=== PATIENT | female | born 1970 | race Two or more races ===

== ENCOUNTER 2017-05-09 21:58 | Emergency (ER) | payer BC, OTHER ==
[2017-05-09] MEDS ORDERED: OXYCODONE-ACETAMINOPHEN 5-325 MG TABLET PO ONE (23:55)
[2017-05-09] MEDS ORDERED: ONDANSETRON 4 MG TAB.RAPDIS PO ONE (23:55)
--- NOTE | 2017-05-09 23:56 | ER Document Report ---
ED Medical Screen (RME) - General Chief Complaint: Flank Pain Stated Complaint: FLANK PAIN Time Seen by Provider: 05/09/17 23:54 Notes: 46-year-old female, chief complaint of right-sided abdominal pain radiating to her flank, worse with food which causes nausea, she denies vomiting, fever. She denies dysuria. She denies any abdominal surgeries. She states pain is almost constant now, prompting her to come be evaluated. TRAVEL OUTSIDE OF THE [place] IN LAST 30 DAYS: No - Related Data Allergies/Adverse Reactions: No Known Allergies Allergy (Verified 02/08/15 15:54) Past Medical History Renal/ Medical History: Denies: Hx Peritoneal Dialysis Past Surgical History: Reports: Hx Section - x2, Hx Tonsillectomy, Hx Tubal Ligation - Immunizations Hx Diphtheria, Pertussis, Tetanus Vaccination: Yes Physical Exam - Vital signs Vitals: Temp Pulse Resp BP Pulse Ox 98.1 F 68 16 122/73 100 05/09/17 23:00 05/09/17 23:00 05/09/17 23:00 05/09/17 23:00 05/09/17 23:00 - Abdominal Tenderness: Tender - Patient is tender in the right upper quadrant with positive Goodwin sign, lower abdomen is completely benign - Back Back: No: Tender, CVA tenderness Course - Re-evaluation Re-evalutation: Patient telling me she thinks she has a UTI, however she has no CVA tenderness, no lower abdominal tenderness, no dysuria, and she has positive right upper quadrant pain with Goodwin sign. - Vital Signs Vital signs: Temp Pulse Resp BP Pulse Ox 98.1 F 68 16 122/73 100 05/09/17 23:00 05/09/17 23:00 05/09/17 23:00 05/09/17 23:00 05/09/17 23:00
[2017-05-10 00:14] LABS: ABSOLUTE BASOPHILS # (AUTO) 0.1 10^3/uL (0.0-0.2); ABSOLUTE EOSINOPHILS # (AUTO) 0.6 10^3/uL (0.0-0.6); ABSOLUTE LYMPHOCYTES (AUTO) 3.5 10^3/uL (0.5-4.7); ABSOLUTE MONOCYTES (AUTO) 0.6 10^3/uL (0.1-1.4); BASOPHILS % (AUTO) 0.9 % (0-2); EOSINOPHILS % (AUTO) 5.3 % (0-6); HEMATOCRIT 41.8 % (36.0-47.0); HEMOGLOBIN 14.4 g/dL (12.0-15.5); HGB HCT DIFFERENCE 1.4; LYMPHOCYTES % (AUTO) 29.6 % (13-45); MEAN CORPUSCULAR HEMOGLOBIN 32.6 pg (27.0-33.4); MEAN CORPUSCULAR HGB CONC 34.5 g/dL (32.0-36.0); MEAN CORPUSCULAR VOLUME 95 fl (80-97); MONOCYTES % (AUTO) 5.4 % (3-13); RED BLOOD COUNT 4.42 10^6/uL (3.72-5.28); RED CELL DISTRIBUTION WIDTH 13.9 % (11.5-14.0); SEGMENTED NEUTROPHILS % (AUTO) 58.8 % (42-78); WHITE BLOOD COUNT 11.9 10^3/uL (4.0-10.5)
[2017-05-10 00:31] LABS: ALANINE AMINOTRANSFERASE 30 U/L (9-52); ALBUMIN 4.1 g/dL (3.5-5.0); ALKALINE PHOSPHATASE 62 U/L (38-126); ANION GAP 9 (5-19); ASPARTATE AMINO TRANSFERASE 26 U/L (14-36); BILIRUBIN,DIRECT 0.3 mg/dL (0.0-0.4); BILIRUBIN,TOTAL 0.4 mg/dL (0.2-1.3); BLOOD UREA NITROGEN 27 mg/dL (7-20); CALCIUM 9.5 mg/dL (8.4-10.2); CARBON DIOXIDE 26 mmol/L (22-30); CHLORIDE 105 mmol/L (98-107); CREATININE RESULT 1.02 mg/dL (0.52-1.25); GLUCOSE 115 mg/dL (75-110); LIPASE 90.2 U/L (23-300); POTASSIUM 4.5 mmol/L (3.6-5.0); TOTAL PROTEIN 7.2 g/dL (6.3-8.2)
[2017-05-10 01:08] LABS: APPEARANCE,URINE CLEAR; BILIRUBIN,URINE NEGATIVE (NEGATIVE); GLUCOSE, URINE NEGATIVE (NEGATIVE); KETONES,URINE NEGATIVE (NEGATIVE); LEUKOCYTE ESTERASE,URINE NEGATIVE (NEGATIVE); NITRITE,URINE NEGATIVE (NEGATIVE); PROTEIN,URINE NEGATIVE (NEGATIVE); URINE SPECIFIC GRAVITY 1.015; UROBILINOGEN,URINE NEGATIVE mg/dL (<2.0)
--- NOTE | 2017-05-10 02:08 | RADIOLOGY REPORT (SQ) ---
EXAM DESCRIPTION: U/S ABDOMEN LIMITED W/O DOP COMPLETED DATE/TIME: 05/10/2017 1:50 am REASON FOR STUDY: ruq pain, nausea COMPARISON: None. TECHNIQUE: Dynamic and static grayscale images acquired of the abdomen and recorded on PACS. Additio nal selected color Doppler and spectral images recorded. LIMITATIONS: None. FINDINGS: PANCREAS: No masses. Visualized pancreatic duct normal caliber. LIVER: No masses. Echotexture normal. LIVER VASCULATURE: Normal directional flow of the main portal vein and hepatic veins. GALLBLADDER: Gallstone(s). No pericholecystic fluid. No wall thickening. ULTRASOUND-DETECTED SCHUMACHER'S SIGN: Negative. INTRAHEPATIC DUCTS AND COMMON DUCT: CBD and intrahepatic ducts normal caliber. No filling defects. INFERIOR VENA CAVA: Normal flow. AORTA: No aneurysm. RIGHT KIDNEY: Normal size. Normal echogenicity. No solid or suspicious masses. No hydronephrosis. No calcifications. Limited detail due to bowel gas artifact. PERITONEAL AND RIGHT PLEURAL SPACE: No ascites or effusions. OTHER: No other significant findings. IMPRESSION: No acute findings. Cholelithiasis. TECHNICAL DOCUMENTATION: JOB ID: [id number] [employer]- All Rights Reserved
--- NOTE | 2017-05-10 02:45 | RADIOLOGY REPORT (SQ) ---
EXAM DESCRIPTION: CT LTD RENAL STONE PROTOCOL ON COMPLETED DATE/TIME: 05/10/2017 2:20 am REASON FOR STUDY: right flank pain COMPARISON: 08/30/2010, 09/26/2010. TECHNIQUE: CT scan of the abdomen and pelvis performed without intravenous or oral contrast. Images reviewed with lung, soft tissue, and bone windows. Reconstructed coronal and sagittal MPR images revi ewed. All images stored on PACS. All CT scanners at this facility use dose modulation, iterative reconstruction, and/or weight based d osing when appropriate to reduce radiation dose to as low as reasonably achievable (ALARA). [facility]: Dose Right [facility]: CareDose [facility]: Dose Right [facility]: Teradose 4D [facility]: Smart [employer] RADIATION DOSE: Up-to-date CT equipment and radiation dose reduction techniques were employed. CTDIv ol: 9.1 mGy. DLP: 459 mGy-cm.mGy. LIMITATIONS: None. FINDINGS: LOWER CHEST: Likely benign 0.4 cm left lower lobar pulmonary nodule partially imaged NON-CONTRASTED LIVER, SPLEEN, ADRENALS: Evaluation limited by lack of IV contrast. No identified sign ificant masses. PANCREAS: No masses. No peripancreatic inflammatory changes. GALLBLADDER: No identified stones by CT criteria. No inflammatory changes to suggest cholecystitis. RIGHT KIDNEY AND URETER: No suspicious masses. Assessment limited by lack of IV contrast. No signif icant calcifications. No hydronephrosis or hydroureter. LEFT KIDNEY AND URETER: No suspicious masses. Assessment limited by lack of IV contrast. No signifi cant calcifications. No hydronephrosis or hydroureter. AORTA AND RETROPERITONEUM: No aneurysm. No retroperitoneal masses or adenopathy. BOWEL AND PERITONEAL CAVITY: No obvious masses or inflammatory changes. No free fluid. APPENDIX: Normal. PELVIS, BLADDER, AND ABDOMINAL WALL:No abnormal masses. No free fluid. Bladder normal. BONES: No significant findings. OTHER: No other significant finding. IMPRESSION: NO SIGNIFICANT OR ACUTE PROCESS IN THE ABDOMEN OR PELVIS. TECHNICAL DOCUMENTATION: JOB ID: [id number] Quality ID # [id number]: Final reports with documentation of one or more dose reduction techniques (e.g., Au tomated exposure control, adjustment of the mA and/or kV according to patient size, use of iterative reconstruction technique) 2010 [employer]- All Rights Reserved
--- NOTE | 2017-05-10 03:09 | ER Document Report ---
ED General - General Chief Complaint: Flank Pain Stated Complaint: FLANK PAIN Time Seen by Provider: 05/09/17 23:54 Notes: Patient is a 46-year-old female presents with complaint of some right-sided flank pain the right upper quadrant abdominal pain. She has also noticed that when she urinates there is some blood in her urine. She also notes some nausea whenever she eats. No fevers. No diarrhea. Pain is been intermittent for a few days. No other complaints at this time. TRAVEL OUTSIDE OF THE [place] IN LAST 30 DAYS: No - Related Data Allergies/Adverse Reactions: No Known Allergies Allergy (Verified 02/08/15 15:54) Past Medical History - Social History Smoking Status: Current Every Day Smoker Chew tobacco use (# tins/day): No Frequency of alcohol use: Occasional Drug Abuse: None Family History: Reviewed & Not Pertinent Patient has suicidal ideation: No Patient has homicidal ideation: No Renal/ Medical History: Denies: Hx Peritoneal Dialysis Past Surgical History: Reports: Hx Section - x2, Hx Tonsillectomy, Hx Tubal Ligation - Immunizations Hx Diphtheria, Pertussis, Tetanus Vaccination: Yes Review of Systems - Review of Systems Notes: My Normal Review Basic REVIEW OF SYSTEMS: CONSTITUTIONAL : Denies fever, chills, or sweats. Denies recent illness. CARDIOVASCULAR: Denies chest pain. RESPIRATORY: Denies cough, cold, or chest congestion. Denies shortness of breath, difficulty breathing, or wheezing. GASTROINTESTINAL: Right upper quadrant abdominal pain and right flank pain. Denies nausea, vomiting, or diarrhea. Denies constipation. Last BM: GENITOURINARY: Some blood in urination. FEMALE GENITOURINARY: Denies vaginal bleeding, abnormal or irregular periods. MUSCULOSKELETAL: Denies neck or back pain or joint pain or swelling. SKIN: Denies rash or skin lesions. NEUROLOGICAL: Denies altered mental status or loss of consciousness. Denies headache. Denies weakness or paralysis or loss of use of either side. Denies problems with gait or speech. Denies sensory or motor loss. ALL OTHER SYSTEMS REVIEWED AND NEGATIVE. Physical Exam - Vital signs Vitals: Temp Pulse Resp BP Pulse Ox 98.1 F 68 16 122/73 100 05/09/17 23:00 05/09/17 23:00 05/09/17 23:00 05/09/17 23:00 05/09/17 23:00 - Notes Notes: General Appearance: Well nourished, alert, cooperative, no acute distress, no obvious discomfort. Well-appearing. Vitals: reviewed, See vital signs table. Head: no swelling or tenderness to the head Eyes: PERRL, EOMI, Conjuctiva clear Mouth: No decreasd moisture Lungs: No wheezing, No rales, No rhonci, No accessory muscle use, good air exchange bilaterally. Heart: Normal rate, Regular rythm, No murmur, no rub Abdomen: Normal BS, soft, No rigidity, mild right upper quadrant abdominal tenderness palpation, No guarding, no rebound, no abdominal masses, no organomegaly Back: Mild pain to palpation at the right side patient's back near the thoracolumbar junction. Extremities: strength 5/5 in all extremities, good pulses in all extremities, no swelling or tenderness in the extremities, no edema. Skin: warm, dry, appropriate color, no rash Neuro: speech clear, oriented x 3, normal affect, responds appropriately to questions. Course - Re-evaluation Re-evalutation: 05/10/17 07:08 Patient did have some hematuria did have some flank pain therefore CT scan was performed to look for kidney stone. It was negative. Patient's ultrasound does show some gallstones. This may be the cause of her pain as she is having nausea after eating. I will refer her to surgery clinic. She has no evidence of cholecystitis. I encouraged her return to ER if she has worsening pain, fevers, or vomiting. Patient agrees with plan and will be discharged home. Dictation of this chart was performed using voice recognition software; therefore, there may be some unintended grammatical errors. - Vital Signs Vital signs: Temp Pulse Resp BP Pulse Ox 97.5 F 57 L 16 129/76 H 100 05/10/17 03:30 05/10/17 03:30 05/10/17 02:03 05/10/17 03:30 05/10/17 03:30 - Laboratory Result Diagrams: 05/10/17 00:05 05/10/17 00:05 Laboratory results interpreted by me: 05/09/17 05/10/17 05/10/17 23:34 00:05 00:05 WBC 11.9 H BUN 27 H Est GFR (Non-Af Amer) 58 L Glucose 115 H Urine Blood MODERATE H Discharge - Discharge Clinical Impression: Flank pain Cholelithiasis Qualifiers: Cholelithiasis location: gallbladder Cholecystitis presence: without cholecystitis Biliary obstruction: without biliary obstruction Qualified Code(s) : K80.20 - Calculus of gallbladder without cholecystitis without obstruction Condition: Good Disposition: HOME, SELF-CARE Additional Instructions: ABDOMINAL PAIN: There are many causes of abdominal pain. Pain can mean a serious problem requiring surgery (such as appendicitis). It can also be an innocent problem that goes away on its own (such as a viral infection). Often, time must pass to determine the cause of pain. The physician does not feel that hospitalization is necessary, at present. Things may change within the next 24 hours. Call the doctor or come back for re- examination if any problems occur, such as: (1) Pain that becomes more severe, steady, or becomes concentrated in one specific area. Also, pain that is more severe with movement or coughing. (2) Vomiting that persists or becomes more frequent. (3) Blood in the vomitus, urine, or bowel movements. Blood in the stool may have a tarry or black appearance. (4) Shaking chills or fever greater than 100 degrees F. (5) The abdomen becomes more distended or swollen. (6) Bowel movements cease. (7) Failure to improve as expected. GALLBLADDER DISEASE: Your evaluation shows evidence of gallbladder disease. The gallbladder is a pouch under the liver which stores bile. Stones, infection, or irritation of the gallbladder cause attacks of pain. Certain foods -- fats in particular -- may provoke attacks. The usual treatment for gallbladder disease is surgical removal of the gallbladder -- called a cholecystectomy. You will be referred to a physician qualified to advise you on the best treatment for your problem. Hospitalization is not necessary. Take clear liquids only until you are painfree. After that, you should stay on a low-fat diet, with frequent SMALL meals. Call the doctor or return at once if you develop severe pain, repeated vomiting, fever, or jaundice (a yellow color in the skin and whites of the eyes) . LOW-FAT DIET: The physician has recommended a low-fat diet. This diet is often used for gallbladder or pancreas problems. Your meals should be high-carbohydrate (potato, apples, noodles, breads, vegetables). Eat fish or skinless chicken (boiled or baked rather than fried) for protein. Beans and peas are good sources of fat-free protein. Soups are usually very low-fat. Don't eat anything fried. Avoid red meats. Avoid most dairy products. Skim milk and non-fat yogurt are OK. Most popular cheeses are very high-fat. Don't add butter or sauces -- use lemon or pepper instead. If you like salads, use one of the new "non-fat" dressings. "Fast Food" is "fat food." There is virtually nothing from a typical fast- food restaurant that you can eat. Fish patties and chicken nuggets are almost always deep-fat fried. "Special Sauces" are mostly fat. ANTINAUSEA MEDICATION: You have been given a medication to suppress nausea and vomiting. This type of medication can be given as a shot, pill, or suppository. It will usually last for many hours. Pills and shots usually last six to eight hours, suppositories last about 12 hours. For the typical illness, only one or two doses of the medication may be necessary. Mild lightheadedness may occur. This type of medicine can cause drowsiness. Do not drive or operate dangerous machinery while under its influence. Do not mix with alcohol. See your doctor at once if you have muscle spasms or tightness, or uncontrollable motions (particularly of the neck, mouth, or jaw). Persistent vomiting or severe lightheadedness should also be evaluated by the physician. FOLLOW-UP CARE: If you have been referred to a physician for follow-up care, call the physician s office for an appointment as you were instructed or within the next two days. If you experience worsening or a significant change in your symptoms, notify the physician immediately or return to the Emergency Department at any time for re-evaluation. Please call the surgery clinic, Dr. Morataya, for close follow-up to arrange a discussion as to whether or not your gallbladder should be electively removed. Your current ultrasound shows no evidence of infection or inflammation of the gallbladder; however, this can change. You should therefore return to the ER immediately if you have any fevers, recurrent vomiting, or worsening pain. Prescriptions: Omeprazole Magnesium [Prilosec Otc] 20 mg PO DAILY #30 tablet. Ondansetron [Zofran Odt 4 mg Tablet] 1 tab PO Q4H PRN #15 tab.rapdis PRN Reason: For Nausea/Vomiting Referrals: ASHLEY MORATAYA MD [ACTIVE STAFF] - 05/13/17
[2017-05-10 03:35] VITALS: BP 129/76
== END 2017-05-10 03:35 | disposition home or self-care (01) ==
LOC: ER 21:58
DX: K80.20 Calculus of gallbladder without cholecystitis without obstruction (principal); R10.9 Unspecified abdominal pain; R10.11 Right upper quadrant pain; R11.0 Nausea; F17.200 Nicotine dependence, unspecified, uncomplicated
CPT/HCPCS: 99284; 36415; 83690; 85025; 81025; 80053; 81001; 76705; 76380; S0119

== ENCOUNTER → 2017-07-08 | Outpatient (CLI) | payer BC ==
--- NOTE | 2017-07-08 09:09 | RADIOLOGY REPORT (SQ) ---
EXAM DESCRIPTION: CT ORBIT/SELLA WITHOUT COMPLETED DATE/TIME: 07/08/2017 7:04 am REASON FOR STUDY: CENTRAL PERFORATION OF TYMPANIC MEMBRANE, RIGHT EAR (H72.01) H72.01 CENTRAL PERFO RATION OF TYMPANIC MEMBRANE, RIGHT EAR COMPARISON: CT brain 02/17/2013 TECHNIQUE: Noncontrasted thin section axial images through the temporal bones and skull base were ob tained and reviewed at bone windows and bone algorithm with coronal and sagittal reconstructions. All CT scanners at this facility use dose modulation, iterative reconstruction, and/or weight based d osing when appropriate to reduce radiation dose to as low as reasonably achievable (ALARA). [facility]: Dose Right [facility]: CareDose [facility]: Dose Right [facility]: Teradose 4D [facility]: [employer] RADIATION DOSE: Up-to-date CT equipment and radiation dose reduction techniques were employed. CTDIv ol: 30.4 mGy. DLP: 327 mGy-cm. mGy. LIMITATIONS: None. FINDINGS: RIGHT SIDE: EXTERNAL AUDITORY CANAL: Widely patent. TYMPANIC MEMBRANE: No masses, thickening or medial retraction. Perforation is not identified. OSSICLES AND MIDDLE EAR CAVITY: Normal ossicles. No middle ear masses or fluid. INNER EAR STRUCTURES: Normal vestibule and cochlea. Normal aqueducts. INTERNAL AUDITORY CANAL: Normal bony canal without narrowing or widening. No calcified or ossified m asses. TEMPOROMANDIBULAR JOINT: Normal. MASTOID AIR CELLS: Clear. LEFT SIDE: EXTERNAL AUDITORY CANAL: Widely patent. TYMPANIC MEMBRANE: No masses, thickening or medial retraction. OSSICLES AND MIDDLE EAR CAVITY: Normal ossicles. No middle ear masses or fluid. INNER EAR STRUCTURES: Normal vestibule and cochlea. Normal aqueducts. INTERNAL AUDITORY CANAL: Normal bony canal without narrowing or widening. No calcified or ossified m asses. TEMPOROMANDIBULAR JOINT: Normal. MASTOID AIR CELLS: Clear. CENTRAL SKULL BASE: Normal foramina. No lytic or blastic lesions. INFERIOR BRAIN: Limited view. No acute findings. PARANASAL SINUSES : There is mucous membrane thickening occluding the left maxillary sinus outlet, be st shown on coronal reconstruction series 201, images 15-17. Circumferential left maxillary sinus mu cous membrane thickening is present without air-fluid level. Right maxillary sinus and maxillary sinus outlets are patent. Frontal sinuses are hypoplastic, an anatomic variant. Ethmoid air cells are clear. Fronto ethmoid j unctions are clear. Sphenoid sinuses are clear. Very mild leftward nasal septal deviation and nasal septal spurring. IMPRESSION: UNREMARKABLE NONCONTRASTED TEMPORAL BONE CT. MUCOUS MEMBRANE THICKENING ALONG THE LEFT MAXILLARY SINUS OUTLET TECHNICAL DOCUMENTATION: JOB ID: [id number] Quality ID # [id number]: Final reports with documentation of one or more dose reduction techniques (e.g., Au tomated exposure control, adjustment of the mA and/or kV according to patient size, use of iterative reconstruction technique) 2010 [employer]- All Rights Reserved
== END ==
LOC: RAD 06:52
PROVIDERS: ATTEND Otolaryngology
DX: H72.01 Central perforation of tympanic membrane, right ear (principal)
CPT/HCPCS: 70480

== ENCOUNTER → 2017-08-15 | Outpatient (CLI) | payer BC ==
[2017-08-15 10:13] LABS: ANION GAP 10 (5-19); BLOOD UREA NITROGEN 32 mg/dL (7-20); CALCIUM 9.8 mg/dL (8.4-10.2); CARBON DIOXIDE 24 mmol/L (22-30); CHLORIDE 108 mmol/L (98-107); CREATININE RESULT 1.19 mg/dL (0.52-1.25); GLUCOSE 83 mg/dL (75-110); POTASSIUM 4.4 mmol/L (3.6-5.0); SODIUM 141.7 mmol/L (137-145)
== END ==
LOC: LAB 08:41
PROVIDERS: ATTEND Family Medicine
DX: R79.89 Other specified abnormal findings of blood chemistry (principal)
CPT/HCPCS: 36415; 80048

== ENCOUNTER → 2018-06-02 | Outpatient (CLI) | payer OTHER ==
--- NOTE | 2018-06-02 16:49 | RADIOLOGY REPORT (SQ) ---
EXAM DESCRIPTION: FOREARM RIGHT COMPLETED DATE/TIME: 06/02/2018 4:40 pm REASON FOR STUDY: PAIN IN RIGHT WRIST, PAIN IN RIGHT ARM COMPARISON: None. NUMBER OF VIEWS: Two views. TECHNIQUE: Two radiographic images acquired of the right forearm, including elbow and wrist in at le ast one projection. LIMITATIONS: None. FINDINGS: MINERALIZATION: Normal. BONES: No acute fracture. No worrisome bone lesions. SOFT TISSUES: No obvious swelling or foreign body. OTHER: No other significant finding. IMPRESSION: NEGATIVE STUDY OF THE RIGHT FOREARM. NO RADIOGRAPHIC EVIDENCE OF ACUTE INJURY. TECHNICAL DOCUMENTATION: JOB ID: [id number] 2004 [employer]- All Rights Reserved Reading location - IP/workstation name: [email or web address]
--- NOTE | 2018-06-02 16:49 | RADIOLOGY REPORT (SQ) ---
EXAM DESCRIPTION: ELBOW RIGHT OVER 2 VIEWS COMPLETED DATE/TIME: 06/02/2018 4:40 pm REASON FOR STUDY: PAIN IN RIGHT WRIST, PAIN IN RIGHT ARM COMPARISON: None. NUMBER OF VIEWS: Four views. TECHNIQUE: AP, lateral, and both oblique radiographic images acquired of the right elbow. LIMITATIONS: None. FINDINGS: MINERALIZATION: Normal. BONES: No acute fracture or dislocation. No worrisome bone lesions. JOINT: No effusion. SOFT TISSUES: No soft tissue swelling. No foreign body. OTHER: No other significant finding. IMPRESSION: NEGATIVE STUDY OF THE RIGHT ELBOW. NO RADIOGRAPHIC EVIDENCE OF ACUTE INJURY. TECHNICAL DOCUMENTATION: JOB ID: [id number] [employer]- All Rights Reserved Reading location - IP/workstation name: [email or web address]
--- NOTE | 2018-06-02 17:09 | RADIOLOGY REPORT (SQ) ---
EXAM DESCRIPTION: HAND RIGHT 3 VIEWS COMPLETED DATE/TIME: 06/02/2018 4:40 pm REASON FOR STUDY: PAIN IN RIGHT WRIST, PAIN IN RIGHT ARM COMPARISON: None. EXAM PARAMETERS: NUMBER OF VIEWS: Three views. TECHNIQUE: AP, lateral and oblique radiographic images acquired of the right hand. LIMITATIONS: None. FINDINGS: MINERALIZATION: Normal. BONES: No acute fracture or dislocation. No worrisome bone lesions. JOINTS: No effusions. SOFT TISSUES: No soft tissue swelling. No foreign body. OTHER: No other significant finding. IMPRESSION: NEGATIVE STUDY OF THE RIGHT HAND. NO RADIOGRAPHIC EVIDENCE OF ACUTE INJURY. TECHNICAL DOCUMENTATION: JOB ID: [id number] [employer]- All Rights Reserved Reading location - IP/workstation name: [email or web address]
== END ==
LOC: RAD 16:22
PROVIDERS: ATTEND Family Medicine Geriatric Medicine
DX: M79.631 Pain in right forearm (principal); M25.531 Pain in right wrist

== ENCOUNTER → 2018-07-24 | Outpatient (CLI) | payer BC ==
--- NOTE | 2018-07-24 11:02 | RADIOLOGY REPORT (SQ) ---
EXAM DESCRIPTION: CT ABD/PELVIS NO ORAL OR IV COMPLETED DATE/TIME: 07/24/2018 8:24 am REASON FOR STUDY: FLANK PAIN (R10.9) R10.9 UNSPECIFIED ABDOMINAL PAIN COMPARISON: CT abdomen pelvis 08/30/2010, 09/26/2010, 05/10/2017 TECHNIQUE: CT scan of the abdomen and pelvis performed without intravenous or oral contrast. Images reviewed with lung, soft tissue, and bone windows. Reconstructed coronal and sagittal MPR images revi ewed. All images stored on PACS. All CT scanners at this facility use dose modulation, iterative reconstruction, and/or weight based d osing when appropriate to reduce radiation dose to as low as reasonably achievable (ALARA). [facility]: Dose Right [facility]: CareDose [facility]: Dose Right [facility]: Teradose 4D [facility]: [employer] RADIATION DOSE: CT Rad equipment meets quality standard of care and radiation dose reduction techniq ues were employed. CTDIvol: 4.9 mGy. DLP: 255 mGy-cm.mGy. LIMITATIONS: No oral or IV contrast FINDINGS: LOWER CHEST: No significant findings. No nodules or infiltrates. NON-CONTRASTED LIVER, SPLEEN, ADRENALS: Evaluation limited by lack of IV contrast. No identified sign ificant masses. PANCREAS: No masses. No peripancreatic inflammatory changes. GALLBLADDER: Surgically absent RIGHT KIDNEY AND URETER: No suspicious masses. Assessment limited by lack of IV contrast. No signif icant calcifications. No hydronephrosis or hydroureter. LEFT KIDNEY AND URETER: No suspicious masses. Assessment limited by lack of IV contrast. No signifi cant calcifications. No hydronephrosis or hydroureter. AORTA AND RETROPERITONEUM: No aneurysm. No retroperitoneal masses or adenopathy. BOWEL AND PERITONEAL CAVITY: No obvious masses or inflammatory changes. No free fluid. APPENDIX: Normal. PELVIS, BLADDER, AND ABDOMINAL WALL:No abnormal masses. No free fluid. Bladder normal. BONES: No significant findings. OTHER: No other significant finding. IMPRESSION: Post cholecystectomy. Otherwise unremarkable uncontrasted CT of the abdomen and pelvis COMMENT: Quality ID # 436: Final reports with documentation of one or more dose reduction techniques (e.g., Automated exposure control, adjustment of the mA and/or kV according to patient size, use of iterative reconstruction technique) TECHNICAL DOCUMENTATION: JOB ID: [id number] [employer]- All Rights Reserved Reading location - IP/workstation name: [email or web address]
== END ==
LOC: RAD 07:30
PROVIDERS: ATTEND Physician Assistant Medical
DX: R31.9 Hematuria, unspecified (principal)
CPT/HCPCS: 74176

== ENCOUNTER 2018-12-19 16:31 | Emergency (ER) | payer BC ==
[2018-12-19] MEDS ORDERED: ONDANSETRON HCL INJ/PF 4 MG/2 ML SDV IV ONE (18:37)
[2018-12-19] MEDS ORDERED: MORPHINE SULFATE 10 MG/ML INJ IV ONE (18:37)
[2018-12-19] MEDS ORDERED: RINGERS SOLUTION,LACTATED 1,000 ML IV ONE (18:37)
[2018-12-19 18:59] LABS: ABSOLUTE EOSINOPHILS # (AUTO) 0.2 10^3/uL (0.0-0.6); ABSOLUTE LYMPHOCYTES (AUTO) 0.6 10^3/uL (0.5-4.7); ABSOLUTE MONOCYTES (AUTO) 0.7 10^3/uL (0.1-1.4); ABSOLUTE NEUT (AUTO) 7.3 10^3/uL (1.7-8.2); BASOPHILS % (AUTO) 0.6 % (0-2); EOSINOPHILS % (AUTO) 2.3 % (0-6); HEMATOCRIT 44.1 % (36.0-47.0); HEMOGLOBIN 14.8 g/dL (12.0-15.5); LYMPHOCYTES % (AUTO) 6.8 % (13-45); MEAN CORPUSCULAR HEMOGLOBIN 31.7 pg (27.0-33.4); MEAN CORPUSCULAR HGB CONC 33.5 g/dL (32.0-36.0); MEAN CORPUSCULAR VOLUME 95 fl (80-97); MONOCYTES % (AUTO) 7.6 % (3-13); PLATELET COUNT 258 10^3/uL (150-450); RED BLOOD COUNT 4.67 10^6/uL (3.72-5.28); RED CELL DISTRIBUTION WIDTH 14.1 % (11.5-14.0); SEGMENTED NEUTROPHILS % (AUTO) 82.7 % (42-78); TOTAL CELLS COUNTED % (AUTO) 100 %; WHITE BLOOD COUNT 8.9 10^3/uL (4.0-10.5)
[2018-12-19 19:13] LABS: APPEARANCE,URINE SLIGHTLY-CLOUDY; BILIRUBIN,URINE NEGATIVE (NEGATIVE); GLUCOSE, URINE NEGATIVE (NEGATIVE); KETONES,URINE NEGATIVE (NEGATIVE); LEUKOCYTE ESTERASE,URINE NEGATIVE (NEGATIVE); NITRITE,URINE NEGATIVE (NEGATIVE); PROTEIN,URINE NEGATIVE (NEGATIVE); URINE SPECIFIC GRAVITY 1.027
[2018-12-19 19:14] LABS: COLOR,URINE YELLOW
[2018-12-19 19:17] LABS: ALANINE AMINOTRANSFERASE 17 U/L (9-52); ALBUMIN 4.5 g/dL (3.5-5.0); ALKALINE PHOSPHATASE 79 U/L (38-126); ANION GAP 12 (5-19); ASPARTATE AMINO TRANSFERASE 31 U/L (14-36); BILIRUBIN,DIRECT 0.3 mg/dL (0.0-0.4); BILIRUBIN,TOTAL 0.3 mg/dL (0.2-1.3); BLOOD UREA NITROGEN 19 mg/dL (7-20); CALCIUM 9.7 mg/dL (8.4-10.2); CARBON DIOXIDE 21 mmol/L (22-30); CHLORIDE 107 mmol/L (98-107); GLUCOSE 95 mg/dL (75-110); LIPASE 43.9 U/L (23-300); POTASSIUM 3.9 mmol/L (3.6-5.0); SODIUM 140.2 mmol/L (137-145); TOTAL PROTEIN 7.3 g/dL (6.3-8.2)
--- NOTE | 2018-12-19 20:19 | ER Document Report ---
ED General - General Chief Complaint: Abdominal Pain Stated Complaint: ABDOMINAL PAIN Time Seen by Provider: 12/19/18 18:11 Primary Care Provider: CRYSTAL HERNANDEZ MD [Primary Care Provider] - Follow up in 3-5 days BALDEMAR PARIKH MD [ACTIVE STAFF] - Follow up in 3-5 days Notes: Patient is a 48 year old female that presents to the emergency department for chief complaint of right sided abdominal pain, vomiting and diarrhea. Patient reports that over the past 24-36 hours she has been having vomiting and diarrhea, and overall has not been feeling well. She also admits to having pain in the right upper quadrant of her abdomen. She describes the pain as a 5/10, aching in nature and it does come and go. She is status post cholecystectomy, reports that she has been having this pain on and off for several months now. Denies history of pancreatitis in the past. Past Medical History: denies chronic medical conditions Past Surgical History: cholecystectomy Social History: denies tobacco, etoh, or drug use. Family History: Reviewed and noncontributory for presenting illness Allergies: Reviewed, see documented allergy list. REVIEW OF SYSTEMS: Other than noted above, the 12 point review of systems was reviewed with the patient and were negative, all pertinent findings are included in the HPI. PHYSICAL EXAMINATION: Vital signs reviewed, nursing noted reviewed. GENERAL: Appears uncomfortable on exam, but not acute distress. HEAD: Atraumatic, normocephalic. EYES: Eyes appear normal, extraocular movements intact, sclera anicteric, conjunctiva are normal. ENT: nares patent, oropharynx clear without exudates. Moist mucous membranes. NECK: Normal range of motion, supple without lymphadenopathy LUNGS: Breath sounds clear to auscultation bilaterally and equal. No wheezes rales or rhonchi. HEART: Regular rate and rhythm without murmurs ABDOMEN: Soft, mild RUQ tenderness with palpation on exam, no flank tenderness, normoactive bowel sounds. No rebound, guarding, or rigidity. No masses a ppreciated. EXTREMITIES: Nontender, good range of motion, no pitting or edema. NEUROLOGICAL: No focal neurological deficits. Moves all extremities spontaneously Motor and sensory grossly intact on exam. PSYCH: Normal mood, normal affect. SKIN: Warm, Dry, normal turgor, no rashes or lesions noted on exposed skin TRAVEL OUTSIDE OF THE [place] IN LAST 30 DAYS: No - Related Data Allergies/Adverse Reactions: No Known Allergies Allergy (Verified 02/08/15 15:54) Past Medical History - Social History Smoking Status: Never Smoker Family History: Reviewed & Not Pertinent Renal/ Medical History: Denies: Hx Peritoneal Dialysis Past Surgical History: Reports: Hx Section - x2, Hx Tonsillectomy, Hx Tubal Ligation - Immunizations Hx Diphtheria, Pertussis, Tetanus Vaccination: Yes Physical Exam - Vital signs Vitals: Temp Pulse Resp BP Pulse Ox 98.5 F 96 14 118/70 100 12/19/18 17:08 12/19/18 17:08 12/19/18 17:08 12/19/18 17:08 12/19/18 17:08 Course - Re-evaluation Re-evalutation: Patient seen and examined vital signs reviewed. Laboratory data and imaging were ordered as appropriate for the patient's presenting symptoms and complaint, with consideration of any critical or life threatening conditions that may be associated with their obtained history and exam as noted above. Patient was treated with IV fluids, IV morphine and Zofran Results were reviewed when available and demonstrated unremarkable blood work, and negative CT imaging of the abdomen and pelvis, UA was positive for hematuria, discussed these results with the patient, do not have a clear etiology of the patient's symptoms she did have fluid in her colon concerning for diarrheal illness, which she has been having vomiting and diarrhea which may explain some of her cramping advised follow-up with her primary care and gastroenterology. The patient was re-evaluated and was stable and improved Evaluation was most consistent with nonspecific abdominal pain, vomiting and diarrhea, given Zofran to go home with and follow-up. Results were discussed with the patient at this point, after careful consideration I feel that that patient can be discharged from the emergency department, the patient was educated treatments and reasons to return to the emergency department based on their presumed diagnosis as noted above, they were advised to followup with a primary care physician in 2-3 days. Patient was agreeable to plan of care. *Note is created using voice recognition software and may contain spelling, syntax or grammatical errors. Laboratory 12/19/18 12/19/18 12/19/18 18:40 18:40 18:40 WBC 8.9 RBC 4.67 Hgb 14.8 Hct 44.1 MCV 95 MCH 31.7 MCHC 33.5 RDW 14.1 H Plt Count 258 Seg Neutrophils % 82.7 H Lymphocytes % 6.8 L Monocytes % 7.6 Eosinophils % 2.3 Basophils % 0.6 Absolute Neutrophils 7.3 Absolute Lymphocytes 0.6 Absolute Monocytes 0.7 Absolute Eosinophils 0.2 Absolute Basophils 0.0 Sodium 140.2 Potassium 3.9 Chloride 107 Carbon Dioxide 21 L Anion Gap 12 BUN 19 Creatinine 0.95 Est GFR ( Amer) > 60 Est GFR (Non-Af Amer) > 60 Glucose 95 Calcium 9.7 Total Bilirubin 0.3 Direct Bilirubin 0.3 Neonat Total Bilirubin Not Reportable Neonat Direct Bilirubin Not Reportable Neonat Indirect Bili Not Reportable AST 31 ALT 17 Alkaline Phosphatase 79 Total Protein 7.3 Albumin 4.5 Lipase 43.9 Urine Color YELLOW Urine Appearance SLIGHTLY-CLOUDY Urine pH 5.0 Ur Specific Baird 1.027 Urine Protein NEGATIVE Urine Glucose (UA) NEGATIVE Urine Ketones NEGATIVE Urine Blood LARGE H Urine Nitrite NEGATIVE Urine Bilirubin NEGATIVE Urine Urobilinogen 2.0 H Ur Leukocyte Esterase NEGATIVE Urine WBC (Auto) 2 Urine RBC (Auto) 31 Squamous Epi Cells Auto 5 Urine Mucus (Auto) MANY Urine Ascorbic Acid NEGATIVE Abdomen/Pelvis CT 12/19/18 20:01 IMPRESSION: 1. Fluid-filled colon suggesting a diarrheal illness. 2. No urinary stones or hydronephrosis. 12/20/18 21:26 - Vital Signs Vital signs: Temp Pulse Resp BP Pulse Ox 98.8 F 80 14 102/61 99 12/19/18 21:58 12/19/18 21:58 12/19/18 17:08 12/19/18 21:58 12/19/18 21:58 - Laboratory Result Diagrams: 12/19/18 18:40 12/19/18 18:40 Laboratory results interpreted by me: 12/19/18 12/19/18 12/19/18 18:40 18:40 18:40 RDW 14.1 H Seg Neutrophils % 82.7 H Lymphocytes % 6.8 L Carbon Dioxide 21 L Urine Blood LARGE H Urine Urobilinogen 2.0 H Discharge - Discharge Clinical Impression: Abdominal pain Qualifiers: Abdominal location: right upper quadrant Qualified Code(s): R10.11 - Right up per quadrant pain Hematuria Qualifiers: Hematuria type: unspecified type Qualified Code(s): R31.9 - Hematuria, unspecified Nausea and vomiting Qualifiers: Vomiting type: unspecified Vomiting Intractability: non-intractable Qualified Code(s): R11.2 - Nausea with vomiting, unspecified Diarrhea Qualifiers: Diarrhea type: unspecified type Qualified Code(s): R19.7 - Diarrhea, unspecified Condition: Stable Disposition: HOME, SELF-CARE Instructions: Abdominal Pain ([facility]) Additional Instructions: Please follow-up with gastroenterology, call for an appointment. Forms: Return to Work Referrals: BALDEMAR PARIKH MD [ACTIVE STAFF] - Follow up in 3-5 days CRYSTAL HERNANDEZ MD [Primary Care Provider] - Follow up in 3-5 days
--- NOTE | 2018-12-19 21:13 | RADIOLOGY REPORT (SQ) ---
CT ABDOMEN PELVIS WITHOUT IV CONTRAST EXAM DATE: 12/19/2018 20:01 HISTORY: Right-sided abdominal pain and hematuria COMPARISON: 07/24/2018 TECHNIQUE: CT scan of the abdomen and pelvis without IV contrast. This exam was performed according to our departmental dose-optimization program, which includes automated exposure control, adjustment of the mA and/or kV according to patient size and/or use of iterative reconstruction technique. FINDINGS: The lung bases are clear. No pleural or pericardial effusions. There is no hiatal hernia. There has been a prior cholecystectomy. The liver, spleen, pancreas, adrenal glands, and kidneys are unremarkable. No hydronephrosis is seen. Pelvic organs are unremarkable. The colon is fluid-filled, suggesting a diarrheal illness. No small bowel obstruction. The appendix is normal. No intraperitoneal free fluid or free air is seen. The aorta is normal caliber. No acute osseous findings are appreciated. There is no body wall hernia. IMPRESSION: 1. Fluid-filled colon suggesting a diarrheal illness. 2. No urinary stones or hydronephrosis.
[2018-12-19] MEDS ORDERED: ONDANSETRON ODT 4 MG TAB (6 TAB/ER DISP) PO PRN (21:45)
[2018-12-19 22:04] VITALS: BP 102/61
== END 2018-12-19 22:03 | disposition home or self-care (01) ==
LOC: ER 16:31
DX: R31.9 Hematuria, unspecified (principal); R11.2 Nausea with vomiting, unspecified; R10.11 Right upper quadrant pain; R19.7 Diarrhea, unspecified; R10.9 Unspecified abdominal pain; Z90.49 Acquired absence of other specified parts of digestive tract
CPT/HCPCS: 99284; 96361; 96374; 96375; 36415; 83690; 85025; 80053; 81001; 74176; J2270; J2405; J7120

== ENCOUNTER 2018-12-21 07:06 | Emergency (ER) | payer BC ==
[2018-12-21] MEDS ORDERED: ONDANSETRON HCL INJ/PF 4 MG/2 ML SDV IV ONE (09:34)
--- NOTE | 2018-12-21 09:39 | ER Document Report ---
ED General - General Chief Complaint: Nausea/Vomiting/Diarrhea Stated Complaint: VOMITING Time Seen by Provider: 12/21/18 08:38 Primary Care Provider: CRYSTAL HERNANDEZ MD [Primary Care Provider] - Follow up as needed Notes: Very pleasant 48-year-old female presents to the emergency department for persistent vomiting and diarrhea that started last . She was seen here on Saturday for similar symptoms and diagnosed with a diarrheal illness. She did get a CT abdomen pelvis which did not show any concerns for nephrolithiasis or any concerning GI pathology. She states that her symptoms have not improved and she has persistent nausea, vomiting, diarrhea. She tried to eat some chicken noodle soup and some crackers last night started having severe abdominal pain that is cramping in nature and clear liquid diarrhea. She does complain of chills but denies fever, complains of body aches, denies any blood hematochezia or hemoptysis. Denies shortness of breath or chest pain. Eyes any urinary symptoms. TRAVEL OUTSIDE OF THE [place] IN LAST 30 DAYS: No - Related Data Allergies/Adverse Reactions: No Known Allergies Allergy (Verified 12/21/18 07:14) Past Medical History - Social History Smoking Status: Unknown if Ever Smoked Family History: Reviewed & Not Pertinent Patient has suicidal ideation: No Patient has homicidal ideation: No Renal/ Medical History: Denies: Hx Peritoneal Dialysis Past Surgical History: Reports: Hx Section - x2, Hx Tonsillectomy, Hx Tubal Ligation - Immunizations Hx Diphtheria, Pertussis, Tetanus Vaccination: Yes Review of Systems - Review of Systems Constitutional: See HPI EENT: See HPI Cardiovascular: See HPI Respiratory: See HPI Gastrointestinal: See HPI Genitourinary: See HPI Female Genitourinary: No symptoms reported Musculoskeletal: No symptoms reported Skin: No symptoms reported Hematologic/Lymphatic: No symptoms reported Neurological/Psychological: No symptoms reported Physical Exam - Vital signs Vitals: Temp Pulse Resp BP Pulse Ox 97.8 F 81 16 117/77 100 12/21/18 07:13 12/21/18 07:13 12/21/18 07:13 12/21/18 07:13 12/21/18 07:13 - Notes Notes: PHYSICAL EXAMINATION: Reviewed vital signs and charting by RN GENERAL: Alert, interacts well. No acute distress. HEAD: Normocephalic, atraumatic. EYES: Pupils equal, round, and reactive to light. Extraocular movements intact. ENT: Oral mucosa moist, tongue midline, erythema of the oropharynx, no tonsillar hypertrophy NECK: Full range of motion. Supple. Trachea midline. LUNGS: Clear to auscultation bilaterally, no wheezes, rales, or rhonchi. No re spiratory distress. HEART: Regular rate and rhythm. No murmur ABDOMEN: soft, tender to palpation right lower quadrant. Non-distended. Bowel sounds present. no McBurney's point tenderness, history of cholecystectomy EXTREMITIES: Moves all 4 extremities spontaneously. No edema, No cyanosis. BACK: No CVAT bilateral NEUROLOGICAL: Alert and oriented x3. Normal speech. PSYCH: Normal affect, normal mood. SKIN: Warm, dry, normal turgor. No rashes or lesions noted. Course - Re-evaluation Re-evalutation: 12/21/18 09:39 Generally well-appearing 48 female returns to the emergency department after being seen here on Saturday. Plan is to hydrate her with IV fluids, obtain an ova and parasite of her stool, get some basic blood work. Previous blood work from 48 hours ago was normal. 12/21/18 12:10 Patient received normal saline 2 L IV. Patient reports improvement in nausea symptoms has not vomited. Still with profuse diarrhea. Stool samples are still pending and lab. 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 Pen ding results of C. difficile and stool culture it would be reasonable to treat her with azithromycin 1 g one time empirically. 12/21/18 13:49 C. difficile negative. Will treat with a azithromycin 1 g 1 time empirically while stool culture is pending. At this time I will also give her a dose of lop eramide. Patient is at this point well-hydrated and stable for discharge. - Vital Signs Vital signs: Temp Pulse Resp BP Pulse Ox 97.7 F 65 15 106/65 100 12/21/18 11:38 12/21/18 11:38 12/21/18 11:38 12/21/18 11:38 12/21/18 11:38 - Laboratory Result Diagrams: 12/21/18 10:11 12/21/18 10:11 Laboratory results interpreted by me: 12/21/18 12/21/18 10:11 11:03 Potassium 3.5 L Chloride 108 H Est GFR (Non-Af Amer) 59 L AST 49 H ALT 53 H Urine Blood MODERATE H Discharge - Discharge Clinical Impression: Diarrhea Qualifiers: Diarrhea type: presumed infectious Qualified Code(s): R19.7 - Diarrhea, unspecified Abdominal pain Qualifiers: Abdominal location: unspecified location Qualified Code(s): R10.9 - Unspecified abdominal pain Nausea and vomiting Qualifiers: Vomiting type: unspecified Vomiting Intractability: non-intractable Qualified Code(s): R11.2 - Nausea with vomiting, unspecified Condition: Good Disposition: HOME, SELF-CARE Instructions: Abdominal Pain ([facility]), Antinausea Medication ([facility]), Diarrhea, Nonspecific ([facility]) Additional Instructions: Gastroenteritis You most likely have gastroenteritis. This is an irritation of the stomach and intestinal tract. It's usually caused by a virus, but can also be caused by mynor teria, toxins that cause food poisoning, or excessive alcohol intake. Symptoms may include fever, painful abdominal cramps, nausea, vomiting, and diarrhea. Start with small amounts (two to six ounces) of clear liquids (soft drinks, herb teas, broth, etc). Try to take fluids frequently even if you are vomiting, to prevent dehydration. When liquids are being consumed successfully, advance to small amounts of bland food (mashed potato, toast) for 6 - 12 hours. Gastroenteritis rarely requires medication. It goes away by itself. Use good handwashing so you don't spread germs. Wash underwear in very hot water. If symptoms are severe, talk to the doctor. Call your physician if blood appears in your vomitus or stool, if vomiting lasts longer than 24 hours, if the abdominal pain worsens or becomes localized to one area, or if you develop high fever. Take the Zofran 1 tablet dissolved of the tongue every 4-6 hours if needed for nausea. Drink small sips of cool clear liquids throughout the evening. Try Pepto-Bismol for diarrhea if needed. Follow-up with local medical doctor if not improving. RETURN TO THE EMERGENCY ROOM IF ANY NEW OR WORSENING SYMPTOMS. Prescriptions: Dicyclomine HCl [Bentyl 20 mg Tablet] 20 mg PO QID PRN #20 tablet PRN Reason: Forms: Return to Work Referrals: CRYSTAL HERNANDEZ MD [Primary Care Provider] - Follow up as needed
[2018-12-21] MEDS: NORMAL SALINE 1000 ML 1,000 ML IV PRN ×2 (10:07→11:07)
[2018-12-21 10:29] LABS: ABSOLUTE BASOPHILS # (AUTO) 0.1 10^3/uL (0.0-0.2); ABSOLUTE EOSINOPHILS # (AUTO) 0.2 10^3/uL (0.0-0.6); ABSOLUTE LYMPHOCYTES (AUTO) 1.7 10^3/uL (0.5-4.7); ABSOLUTE MONOCYTES (AUTO) 0.7 10^3/uL (0.1-1.4); ABSOLUTE NEUT (AUTO) 5.7 10^3/uL (1.7-8.2); BASOPHILS % (AUTO) 0.9 % (0-2); EOSINOPHILS % (AUTO) 2.3 % (0-6); HEMATOCRIT 43.7 % (36.0-47.0); HEMOGLOBIN 14.7 g/dL (12.0-15.5); LYMPHOCYTES % (AUTO) 19.8 % (13-45); MEAN CORPUSCULAR HEMOGLOBIN 31.8 pg (27.0-33.4); MEAN CORPUSCULAR HGB CONC 33.7 g/dL (32.0-36.0); MEAN CORPUSCULAR VOLUME 94 fl (80-97); MONOCYTES % (AUTO) 8.4 % (3-13); PLATELET COUNT 260 10^3/uL (150-450); RED BLOOD COUNT 4.63 10^6/uL (3.72-5.28); RED CELL DISTRIBUTION WIDTH 13.9 % (11.5-14.0); SEGMENTED NEUTROPHILS % (AUTO) 68.6 % (42-78); TOTAL CELLS COUNTED % (AUTO) 100 %; WHITE BLOOD COUNT 8.3 10^3/uL (4.0-10.5)
[2018-12-21 10:41] LABS: ALANINE AMINOTRANSFERASE 53 U/L (9-52); ALBUMIN 4.3 g/dL (3.5-5.0); ALKALINE PHOSPHATASE 98 U/L (38-126); ANION GAP 11 (5-19); ASPARTATE AMINO TRANSFERASE 49 U/L (14-36); BILIRUBIN,DIRECT 0.3 mg/dL (0.0-0.4); BILIRUBIN,TOTAL 0.3 mg/dL (0.2-1.3); BLOOD UREA NITROGEN 18 mg/dL (7-20); CALCIUM 9.5 mg/dL (8.4-10.2); CARBON DIOXIDE 22 mmol/L (22-30); CHLORIDE 108 mmol/L (98-107); GLUCOSE 92 mg/dL (75-110); POTASSIUM 3.5 mmol/L (3.6-5.0); SODIUM 140.6 mmol/L (137-145); TOTAL PROTEIN 7.3 g/dL (6.3-8.2)
[2018-12-21 11:30] LABS: APPEARANCE,URINE CLEAR; BILIRUBIN,URINE NEGATIVE (NEGATIVE); COLOR,URINE STRAW; GLUCOSE, URINE NEGATIVE (NEGATIVE); KETONES,URINE NEGATIVE (NEGATIVE); LEUKOCYTE ESTERASE,URINE NEGATIVE (NEGATIVE); NITRITE,URINE NEGATIVE (NEGATIVE); PROTEIN,URINE NEGATIVE (NEGATIVE); URINE SPECIFIC GRAVITY 1.004; UROBILINOGEN,URINE NEGATIVE mg/dL (<2.0)
[2018-12-21] MEDS ORDERED: AZITHROMYCIN 250 MG TABLET PO ONE (13:48)
[2018-12-21] MEDS ORDERED: LOPERAMIDE HCL 2 MG CAPSULE PO ONE (13:48)
[2018-12-21] MEDS ORDERED: ONDANSETRON ODT 4 MG TAB (6 TAB/ER DISP) PO PRN (13:49)
[2018-12-21] MEDS ORDERED: MAG HYDROX/AL HYDROX/SIMETH SUSP 30 ML UDCUP PO ONE (13:59)
[2018-12-21] MEDS ORDERED: METOCLOPRAMIDE HCL ORAL SOLN 10 MG/10 ML UDCUP PO ONE (13:59)
[2018-12-21] MEDS ORDERED: LIDOCAINE 2% VISCOUS SOLN 20 ML UDCUP PO ONE (13:59)
[2018-12-21 14:11] VITALS: BP 115/67
== END 2018-12-21 14:14 | disposition home or self-care (01) ==
LOC: ER 07:06
DX: R10.9 Unspecified abdominal pain (principal); R11.2 Nausea with vomiting, unspecified; R19.7 Diarrhea, unspecified
CPT/HCPCS: 99284; 96361; 96374; 36415; 87045; 87205; 87209; 87177; 85025; 81025; 80053; 81001; 87493; J3490; J2405; J7030